=== PATIENT | female | born 1965 | race African-American/Black ===

== ENCOUNTER 2024-03-22 08:35 | Emergency (ER) | payer BC, OTHER ==
[2024-03-22 08:42] VITALS: RESP 18; TEMP 98.2; BMI 33.9
[2024-03-22] MEDS ORDERED: ACETAMINOPHEN 500 MG TABLET (FP) ONE (09:12)
[2024-03-22] MEDS ORDERED: KETOROLAC TROMETHAMINE 30 MG/1 ML VIAL ONE (09:13)
[2024-03-22] MEDS ORDERED: LIDOCAINE 5% TOPICAL PATCH ONE (09:13)
[2024-03-22] MEDS: ACETAMINOPHEN 500 MG TABLET (FP) PO ONE (09:20)
[2024-03-22] MEDS: KETOROLAC TROMETHAMINE 30 MG/1 ML VIAL IVPUSH ONE (09:21)
[2024-03-22] MEDS: KETOROLAC TROMETHAMINE 30 MG/1 ML VIAL IM ONE (09:21)
[2024-03-22] MEDS: LIDOCAINE 5% TOPICAL PATCH TP ONE (10:00)
[2024-03-22] MEDS ORDERED: METHOCARBAMOL 500 MG TABLET ONE (11:37)
[2024-03-22] MEDS ORDERED: DEXAMETHASONE SOD PHOSPHATE 10 MG/1 ML VIAL ONE (11:37)
[2024-03-22] MEDS: DEXAMETHASONE 4 MG TABLET (FP) PO STA (11:43)
[2024-03-22] MEDS: METHOCARBAMOL 500 MG TABLET PO ONE (11:44)
[2024-03-22 12:42] VITALS: BP 138/94; PULSE 70
[2024-03-22] MEDS ORDERED: LIDOCAINE PATCH REMOVAL MC SCH (22:00)
== END 2024-03-22 12:51 | disposition home or self-care (01) ==
LOC: FER 08:35
PROC: 3E0133Z Introduction of Anti-inflammatory into Subcutaneous Tissue, Percutaneous Approach (ICD-10-PCS; principal; 2024-03-22)
DX: M54.50 Low back pain, unspecified (principal); G89.29 Other chronic pain
CPT/HCPCS: 72131-TC; 99284-25